=== PATIENT | female | born 1980 | race African-American/Black ===

== ENCOUNTER 2016-09-12 19:35 | Emergency (ER) | payer OTHER ==
[~2016-09-12 19:35] MED LIST: ALEVE220 MG PO; CLEOCIN300 MG PO; NAP500 PO; NORCO1 TA1 PO; PCET PO
== END 2016-09-12 20:19 | disposition home or self-care (01) ==
LOC: ER 19:35
DX: K08.89 Other specified disorders of teeth and supporting structures (principal); F17.200 Nicotine dependence, unspecified, uncomplicated; Z88.0 Allergy status to penicillin; Z79.899 Other long term (current) drug therapy
CPT/HCPCS: 99283; A9270-GY